=== PATIENT | female | born 1995 ===

== ENCOUNTER 2019-04-26 21:42 | Emergency (ER) | payer SELFPAY ==
[~2019-04-26] VITALS: Ht 177.8 cm; Wt 54.4 kg
[~2019-04-26 21:42] MED LIST: ZOLOFT100 MG ORAL
--- NOTE | 2019-04-26 21:45 | NUR ---
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
--- NOTE | 2019-04-26 21:55 | Emergency Room Report ---
History of Present Illness General Chief Complaint: allergic reaction Source: Patient Present Illness HPI Patient presents after experiencing an allergic reaction reports that prior to calling paramedics she started having some swelling of her lips She felt that her tongue was also swollen patient had itching of her hands and feet Patient was given Epinephrine IM and Benadryl in route by paramedics at this time reports that her itching sensation is much improved Denies any chest pain or shortness of breath denies ever having any difficulty swallowing or breathing Patient reports eating a poke bowl which had salmon which had at 6:30pm She has had salmon before in the past however Reports that she was boxing when she had the sensation initially Denies any vomiting or diarrhea Denies any recent antibiotic use Allergies: Coded Allergies: No Known Allergies (Unverified , 04/26/19) Patient History Past Medical History: see triage record Last Menstrual Period: 03/24/19 Now: No Reviewed Nursing Documentation: PMH: Agreed; PSxH: Agreed Nursing Documentation-PMH Past Medical History: No Stated History Review of Systems All Other Systems: negative except mentioned in HPI Physical Exam Vital Signs Date Time Temp Pulse Resp B/P (MAP) Pulse Ox O2 Delivery O2 Flow Rate FiO2 04/26/19 21:31 97.9 101 16 133/70 (91) 99 Room Air Sp02 EP Interpretation: reviewed, normal General Appearance: well appearing, no apparent distress Head: normocephalic, atraumatic Eyes: bilateral eye PERRL, bilateral eye EOMI ENT: hearing grossly normal, normal pharynx, TMs + canals normal, uvula midline , other - Patient does feel that her lips are mildly swollen and also feels that her tongue is mildly swollen there is no obvious angioedema appearance Neck: full range of motion, supple, no meningismus, no bony tend Respiratory: lungs clear, normal breath sounds, no rhonchi, no respiratory distress, no retraction, no accessory muscle use Cardiovascular #1: normal peripheral pulses, regular rate, rhythm, no edema, no gallop, no JVD, no murmur Gastrointestinal: normal bowel sounds, non tender, soft, no mass, no organomegaly, non-distended, no guarding, no hernia, no pulsatile mass, no rebound Genitourinary: no CVA tenderness Musculoskeletal: normal inspection Neurologic: oriented x3, responsive, 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, motor strength/ tone normal, sensory intact Psychiatric: mood/affect normal Skin: no rash Lymphatic: normal inspection, no adenopathy Medical Decision Making Diagnostic Impression: Primary Impression: Allergic reaction ER Course Multiple differentials and consideration including but not limited to allergic reaction, compromised airway, reactive disease patient was given epinephrine in route and Benadryl At this time patient provided with steroids and Pepcid Patient's voice is normal there is no upper airway stridor patient is continued to be observed Patient had improved on repeat evaluation and boyfriend was in the room with her On a final evaluation attempt patient was found to have eloped at the emergency room She did have an IV in place therefore request was made to contact police and incident report filed Last Vital Signs Date Time Temp Pulse Resp B/P (MAP) Pulse Ox O2 Delivery O2 Flow Rate FiO2 04/26/19 21:31 97.9 101 16 133/70 (91) 99 Room Air Status: improved Disposition: ELOPED Condition: Improved Marielle Wang DO Apr 26, 2019 21:54
[2019-04-26] MEDS ORDERED: Solu-MEDROL 125mg Inj IVP ONE (22:00)
--- NOTE | 2019-04-26 22:10 | NUR ---
ED Nurse Note: PT FOUND OUT OF ROOM SITTING IN HALLWAY, PT STATES SHE CAN NOT STAY IN ROOM WITH OTHER PT, SHE IS SCARED, PT PLACED IN ANOTHER ROOM, IV FLUIDS INFUSING, PT DENIES ANY INCREASED S/S, HIVES APPEARANCE IS LESS AND NO ITCHING, PT DENIES SOB, O2 SAT=99%, SPOUSE AT BEDSIDE, WILL CONTINUE TO MONITOR.
[2019-04-26] MEDS ORDERED: Solu-MEDROL 125mg Inj ONE (22:20)
[2019-04-26 23:00] VITALS: BP 129/77
[2019-04-26 23:45] VITALS: BP 129/77
--- NOTE | 2019-04-26 23:45 | NUR ---
ED Nurse Note: PT NOTED NOT IN ROOM, SEEN LAST AT 2340, PT WAS AMBULATORY AND WITH SPOUSE, [place] AND THINK SHE DID NOT UNDERSTAND INSTRUCITONS TO WAIT FOR NURSE, ATTEMPTED TO CALL PT FOR D/C INSTRUCTIONS, NO INFO TAKEN BY ADMITTING, MD AND CHARGE NURSE AWARE, PT CARE WAS COMPLETED.
== END 2019-04-27 | disposition home or self-care (01) ==
LOC: EDBD 21:42 → EMR 04-27 01:29
DX: T78.40XA Allergy, unspecified, initial encounter (principal); X58.XXXA Exposure to other specified factors, initial encounter
CPT/HCPCS: 96361; 96374; 96375; 99284; J2930; S0028; J7030